=== PATIENT | female | born 1995 | race Caucasian/White ===

== ENCOUNTER 2021-12-17 17:44 | Inpatient (IN) ==
[~2021-12-17 17:44] MED LIST: Famotidine 20 MG/2 ML VIAL IVP PRN; Metoclopramide 10 MG/2 ML VIAL IVP PRN; Naloxone 0.4 MG/ML INJ IVP PRN
[2021-12-17] MEDS ORDERED: EPHEDrine 50 MG/ML VIAL IVP PRN (17:51)
[2021-12-17] MEDS ORDERED: Penicillin G Potassium 5,000,000 UNIT in 0.9 % Sodium Chloride Mini Bag 100 ML IVPB ONE (18:00)
[2021-12-17] MEDS ORDERED: Epidural Premix (fent/bupiv) 110 ML EP SCH (18:00)
[2021-12-17] MEDS ORDERED: Ringers Solution, Lactated 1,000 ML ONE (18:15)
[2021-12-17 18:41] LABS: Basophils % 0.1 %; Eosinophils % 0.1 %; Hematocrit 38.1 % (35.3-44.9); Immature Granulocytes % 0.4 % (0-4); Lymphocytes # 1.4 K/mcL (0.6-4.6); Lymphocytes % 8.6 %; Mean Corpuscular HGB Conc 34.1 g/dL (31.6-35.5); Mean Corpuscular Hemoglobin 32.3 pg (28.0-33.3); Mean Corpuscular Volume 94.5 fL (83.0-100.0); Mean Platelet Volume 9.3 fL (9.4-12.4); Monocytes # 0.8 K/mcL (0.0-1.3); Monocytes % 5.1 %; Neutrophils # 13.7 K/mcL (1.6-8.9); Platelet Count 284 K/mcL (140-400); Red Blood Count 4.03 M/mcL (3.82-4.97); Red Cell Distribution Width 12.8 % (11.5-14.5); Segmented Neutrophils % 85.7 %
[2021-12-17 18:50] LABS: Amphetamine Screen,Urine Negative ng/mL (Cutoff=1000); Barbiturate Screen,Urine Negative ng/mL (Cutoff=200); Benzodiazepines Screen,Urine Negative ng/mL (Cutoff=200); Cannabinoid Screen,Urine Negative ng/mL (Cutoff = 50); Cocaine Screen,Urine Negative ng/mL (Cutoff= 300); Opiate Screen,Urine Negative ng/mL (Cutoff=300); Phencyclidine Screen,Urine Negative ng/mL (Cutoff=25)
[2021-12-17] MEDS ORDERED: *HR* Nalbuphine 10 MG/ML AMPUL IV PRN (18:57)
[2021-12-17 19:27] LABS: Influenza A PCR Negative (Negative); Influenza B PCR Negative (Negative); Resp. Syncytial Virus PCR Negative (Negative)
[2021-12-17 19:40] LABS: SARS-CoV-2 by PCR (In House) Negative (Negative)
[2021-12-17] MEDS ORDERED: Oxytocin 30 UNIT/503 ML BAG IVC ONE (20:01)
[2021-12-17] MEDS ORDERED: Penicillin G Potassium 2,500,000 UNIT/105 ML MLS IVPB SCH (22:00)
[2021-12-18] MEDS ORDERED: Lanolin 7 G OINT...G. TP PRN (00:48)
[2021-12-18] MEDS ORDERED: Rho Immune Globulin 1,500 UNIT SYRINGE IM PRN (00:48)
[2021-12-18] MEDS ORDERED: Benzocaine/Menthol 56 GM AEROSOL SPRAY TP PRN (00:48)
[2021-12-18] MEDS ORDERED: *HR* OxyCODONE Immed Rel 5 MG TABLET PO PRN (00:48)
[2021-12-18] MEDS ORDERED: Ondansetron ODT 4 MG TAB.RAPDIS SL PRN (00:48)
[2021-12-18] MEDS: Acetaminophen 325 MG TABLET PO SCH ×3 (01:10→16:46)
[2021-12-18] MEDS: Ibuprofen 600 MG TABLET PO SCH ×3 (01:10→16:46)
[2021-12-18 06:40] VITALS: O2SAT 98
[2021-12-18] MEDS ORDERED: Prenatal Vit/FA 1 EACH TABLET PO SCH (09:00)
[2021-12-18] MEDS: Oxytocin 30 UNIT/503 ML BAG IVC SCH ×2 (16:00→16:01)
[2021-12-18 20:56] VITALS: BP 124/76; PULSE 74; TEMP 97.6
== END 2021-12-18 22:45 | disposition home or self-care (01) | DRG 807 ==
LOC: 1NENULAB → 1NENUOBS 12-18 00:49
PROVIDERS: ADMIT Obstetrics & Gynecology; ATTEND Obstetrics & Gynecology